=== PATIENT | male | born 1950 | race Caucasian/White ===

== ENCOUNTER → 2019-11-07 | Outpatient (CLI) | payer OTHER ==
[~2019-11-07] MED LIST: ACID CONTROLLER20 MG PO; ALOGLIPTIN25 MG PO; ASA81BEC PO; COL-RITE100 MG PO; COQ-10100 MG PO; FLOMAX0.4 MG PO; MELATONIN3 M1 PO; METFORMIN HCL500 M2 PO; METFORMIN HCL500 M3 PO; MINIPRESS2 MG PO; NEURONTIN100 MG PO; NEURONTIN300 MG PO; NIACIN 500 MG500 M1 PO; NITROSTAT0.4 M1 SUBLING; OMEGA-31000 M2 PO; PLAVIX 75 MG TA75 MG PO; ROBAXIN 750 MG750 MG PO; SYNTHROID125 MC1 PO; TRAMADOL 50 MG50 MG PO; TYLENOL EXTRA500 MG PO; VITAMIN D350 MCG PO; VYTORIN 10-201 EACH PO
== END ==
LOC: LAB 14:28
PROVIDERS: ATTEND Student in an Organized Health Care Education/Training Program
DX: Z01.812 Encounter for preprocedural laboratory examination (principal)

== ENCOUNTER 2019-11-10 06:04 | Inpatient (IN) | payer OTHER ==
[2019-11-07 11:25] LABS: ABSOLUTE NEUTROPHILS 4.8 thou/uL (1.4-8.2); BASOPHILS 0.3 % (0.0-2.0); EOSINOPHILS 3.4 % (0.0-3.0); HEMOGLOBIN 13.6 gm/dL (14.0-18.0); LYMPHOCYTES 24.1 % (24.0-44.0); MCH 30.9 pg (26.0-34.0); MCHC 34.9 g/dL (28.0-37.0); MCV 88.5 fL (80.0-100.0); PLATELET COUNT 100 thou/uL (150-400); POLYS 66.2 % (36.0-66.0); RBC 4.41 mil/uL (4.50-6.00); RDW 12.3 % (10.5-14.5); WBC 7.2 thou/uL (4.0-11.0)
[2019-11-07 11:40] LABS: ALBUMIN 4.3 g/dL (3.4-5.0); APTT 27.1 Seconds (24.5-32.8); CALCIUM 9.3 mg/dL (8.5-10.1); CREATININE 1.1 mg/dL (0.7-1.3); POTASSIUM 4.1 mmol/L (3.5-5.1); PROTIME 10.4 Seconds (9.3-11.4); TOTAL BILIRUBIN 0.3 mg/dL (0.2-1.0); TOTAL PROTEIN 7.3 g/dL (6.4-8.2)
[2019-11-07 11:56] LABS: URINE BILIRUBIN NEGATIVE (Negative); URINE BLOOD NEGATIVE (Negative); URINE CLARITY CLEAR; URINE COLOR YELLOW; URINE GLUCOSE-RANDOM* NEGATIVE (Negative); URINE KETONES NEGATIVE (Negative); URINE LEUKOCYTES-REFLEX NEGATIVE (Negative); URINE NITRITE-REFLEX NEGATIVE (Negative); URINE PROTEIN (DIPSTICK) NEGATIVE (Negative); URINE SPECIFIC GRAVITY >= 1.030 (1.005-1.035); URINE UROBILINOGEN 0.2 E.U./dl (0.2-1.0)
[2019-11-08 01:11] LABS: GLYCOHEMOGLOBIN (HGB A1C) 7.1 % (4.8-5.6)
--- NOTE | 2019-11-08 07:47 | EKG ---
[facility] [place] [address] ELECTROCARDIOGRAM REPORT Name: WHITLEY DUVAL Room #: PRE IN M.R.#: [id number] Admission: Attend Phys: Chad Fischer MD Discharge: Date of : 52 Report #: [id number] THIS REPORT FOR: cc: FAM - Family physician unknown FAM - Family physician unknown George Keita MD [facility] ~ THIS REPORT FOR: //name// [facility] Test Date: 2019-11-07 Test Time: 11:17:17 Pat Name: WHITLEY DUVAL Department: Room: Gender: Wedding Photographer: Ciro EDOUARD : 1950 Requested By: Chad Fischer Order Number: [id number] MD: George Keita Measurements Intervals [place] Rate: 66 P: 50 AL: 198 QRS: -40 QRSD: 127 T: 90 QT: 384 QTc: 403 Interpretive Statements Sinus rhythm Left bundle branch block No previous ECG available for comparison Electronically Signed On 11-08-2019 7:47:10 CDT by George Keita [email or web address] <ELECTRONICALLY SIGNED> By: George Keita MD, [facility] 11/08/19 0747 D: [id number] George Keita MD, FACC /EPI
[~2019-11-10] VITALS: Ht 172.7 cm; Wt 95.3 kg
[2019-11-10] VITALS (15 sets, daily range): BP systolic 102–149; BP diastolic 54–87
--- NOTE | ~2019-11-10 | O ---
[facility] [place] [address] OPERATIVE REPORT Name: WHITLEY DUVAL Room #: 448-P ADM IN M.R.#: [id number] Admission: 11/10/19 Attend Phys: Chad Fischer MD Discharge: Date of : 52 Report #: [id number] THIS REPORT FOR: cc: NICOLE - Family physician unknown NICOLE - Family physician unknown Chad Fischer MD ~ CC: NICOLE unknown Chad [facility] DATE OF SERVICE: 11/10/2019 PREPROCEDURAL DIAGNOSES: L1-L2 spinal stenosis, L2-L3 spinal stenosis, L3-L4 spinal stenosis (recurrent), herniated nucleus pulposus L2-L3, herniated nucleus pulposus L3-L4, free fragment extruded to L1-L2. POSTPROCEDURAL DIAGNOSES: L1-L2 spinal stenosis, L2-L3 spinal stenosis, L3-L4 spinal stenosis (recurrent), herniated nucleus pulposus L2-L3, herniated nucleus pulposus L3-L4, free fragment extruded to L1-L2. PROCEDURE: Bilateral laminectomy with partial facetectomy and neuroforaminotomy of L1, bilateral laminectomy with partial facetectomy and neuroforaminotomy of L2, bilateral laminectomy with partial facetectomy and neuroforaminotomy redo L3, bilateral laminectomy with partial facetectomy and neural foraminotomy redo L4. The patient also had extraction of herniated nucleus pulposus fragments scarred to the floor of the spinal canal just medial to the pedicle of L2 on the left. In addition, he also had removal of a large recurrent herniation at left L3-L4 and he also had serial fluoroscopy. SURGEON: Chad Fischer MD SALES REPRESENTATIVE SURGEON: MARKIE Bai ANESTHESIA: General via endotracheal tube. INDICATIONS: The patient has had back and intractable leg pain. He had it in a radicular distribution L2 nerve root, L3 nerve root and L4 nerve root in the form of a foot drop. He also had neurogenic claudication of the spinal nerve roots. He had proved refractory to all forms of multimodality conservative management and was requesting surgical intervention. His flexion-extension view showed his spine to be stable and on that basis we felt that he did not need a fusion. The patient understood the risks of surgery to be , DVT, pulmonary embolism, paraplegia, loss of bowel and bladder function, loss of sexual function, possibility of bleeding, bleeding requiring transfusion, transfusion attendant risks of AIDS and hepatitis, infection, instability, the need for revision, prolonged hospital stay, dural leak, spinal headache, infection and [address] [address] OPERATIVE REPORT Name: WHITLEY DUVAL Room #: 448-P [facility] IN M.R.#: [id number] Admission: 11/10/19 Attend Phys: Chad Fischer MD Discharge: Date of : 52 Report #: [id number] again he requested we proceed. He also understood the chance of recurrence. DESCRIPTION OF PROCEDURE: The patient was brought to the operating room and administered general anesthesia via endotracheal tube. Lower extremities were treated with SHIRLEY hose and intermittent compression stockings. He was positioned on the Tavo table in the prone position with all bony prominences padded appropriately. Care was taken to ensure the shoulders were not abducted more than 90 degrees, the elbows flexed more than 90 degrees, there was no undue pressure on the cubital or carpal canals. The area of the anterior superior iliac spine was well padded to protect the lateral femoral cutaneous nerve. Hips and knees were well padded and there was no pressure on the dorsum of the feet. The patient's low back was defatted with alcohol and visualized under fluoroscopy and the pedicles of L1, L2, L3, and L4 were marked on the patient's back for surgical reference. Once the levels were known, we sterilely prepped and draped. Infiltrated the skin with 0.5% Marcaine, 1:200,000 epinephrine and sharp dissection was continued down through the skin and the subcutaneous tissues to the level of the deep fascia. Scar was encountered at the L3-L4 level. We carefully dissected to avoid inadvertent penetration of the redo area at L3-L4. We exposed the spinous processes and lamina of L1, L2, L3 and L4. Then, deep self-retaining retractors were placed. The inner laminar spaces were cleared with a heavy ____ curette and Leksell rongeur. Once the exposure was complete and all bleeding had been addressed and stopped, we placed a clamp on the spinous process of what we believed to be L3. Fluoroscopy was brought into the field and fluoroscopy which required fluoroscopic exposure and interpretation by the operative surgeon proved to be at the L3 level. The clamp was removed. The spinous process was scored with a Leksell rongeur. Bleeding was addressed with bone wax. We then removed the spinous processes to allow the laminectomy of L1, L2, L3, and L4. Once they were removed, we were able to thin the lamina of L1, L2, L3 and L4 with a high speed drill to thin to the anterior cortex. We addressed punctate bone bleeding with bone wax on a Kittner. With bone wax pressed into the lamina and the hemostasis now excellent, we used a micro curette under loupe magnification headlight illumination to separate the ligamentum flavum from the undersurface of the lamina, which was then resected with a 3 mm Kerrison. We started at L1 and removed the lamina. I then performed partial facetectomies and ligament resection down to L2. We then used the micro curette to separate the ligament from L2 and performed an L2 laminectomy and marched down the canal including L3 and L4, noting that L3 and L4 had been previously violated and was done in redo fashion. Once complete, we had performed wide central decompression. We then started on the left and marched our way down the lateral recess and performed decompression, partial facetectomy, ligament resection until we were to the level of the pedicle bilaterally. We then turned and performed exactly the same procedure on the right. We then mobilized the L2 nerve root on the left, gently retracted it cephalad and in the axilla and the takeoff of the nerve root just beneath it was a large extruded fragment that was removed. It was almost then like a gelatinous material that was removed both with the pituitary and suction. [facility] [address] [place] [address] OPERATIVE REPORT Name: WHITLEY DUVAL Room #: 448-P [facility] IN M.R.#: [id number] Admission: 11/10/19 Attend Phys: Chad Fischer MD Discharge: Date of : 52 Report #: [id number] [place] dental elevator with downward pressure on the posterior longitudinal ligament would extrude this jelly-like material that was removed with suction and this took care of the central stenosis, lateral recess and neuroforaminal stenosis at the L1 and L2 levels all the way down to L3. At the L3-L4 level, we had to approach it as a redo and leg scar was removed with a micro curette, and then removed with a 2 or 3 mm Kerrison, whichever could be placed. Eventually, we developed the decompression at the L3-L4 level. On the patient's right side, there was a huge extruded disk and this was isolated. The nerve root dissected off the floor of the canal where it was scarred, retracted carefully with a nerve root retractor and the disk material was removed until the canal floor was completely flat and there was no further mass effect from the disk. When complete, we also performed neural foraminotomies of the L4 nerve roots and everything probed completely free. Hemostasis had been excellent. We copiously irrigated with a liter of antibiotic-containing solution. We obtained meticulous hemostasis. We closed the deep fascial layer with 0 Ethibond in [id number] interrupted fashion, deep subQ with 0 Vicryl, superficial subQ with 2-0 Vicryl, skin with subcuticular 3-0 and bubba. We then dressed it with benzoin, Steri-Strips, Xeroform, sterile dressing sponges and a Bioclusive. The patient tolerated the procedure well. Final blood loss was approximately 20 mL. There were no specimens, no complications and the patient was physiologically stable throughout. By: [id number] Chad Fischer MD /nt
--- NOTE | 2019-11-10 15:40 | NUR ---
PATIENT ADMITTED FROM OR WITH LUMBAR LAMINECTOMY, PATIENT HAS LOWER BACK, TELFA, TEGADERM. PATIENT C/O PAIN WITH BACK AREA 5/10. PERCOCET 1 TABLET GIVEN. PATIENT STARTED IV FLUIDS AT 75CC/HR. PATIENT HAS LEFT HAND IV IN PLACE. ALL 1400 MEDS GIVEN. NO C/O NAUSEA AT THIS TIME. PATIENTR STARTED REGULAT DIET. AT BEDSIDE, REPORT GIVEN PONCH/AS400 ADMINISTRATOR.
--- NOTE | 2019-11-11 03:47 | NUR ---
RECEIVED CARE OF THIS PATIENT AT 1900. PATIENT C/O PAIN, IV AND PO MED GIVEN. IVIN L HAND PATENT WITH FLUIDS INFUSING. PATIENT SAT ON EDGE OF BED THEN WALKED A FEW STEPS AND SAT DOWN ON BED. GOT UP A SECOND TIME AND SAT IN A CHAIR FOR 15MIN. STATED WAS PAINFUL TO GET UP BUT TO SIT UP OR WALK. PATIENT HAS BOTH SCD'S AND TEDS ON. DRESSING ON BACK IS INTACT WITH SOME BLOOD POOLING IN THE BOTTOM OF THE DRESSING. SLEPT OFF AND ON DURING NIGHT.
[2019-11-11 04:37] VITALS: BP 103/60
[2019-11-11 06:12] LABS: ABSOLUTE NEUTROPHILS 9.8 thou/uL (1.4-8.2); BASOPHILS 0.5 % (0.0-2.0); EOSINOPHILS 0.2 % (0.0-3.0); HEMATOCRIT 36.5 % (42.0-52.0); HEMOGLOBIN 12.8 gm/dL (14.0-18.0); LYMPHOCYTES 15.2 % (24.0-44.0); MCH 31.2 pg (26.0-34.0); MCHC 35.1 g/dL (28.0-37.0); MONOCYTES 7.6 % (1.0-8.0); PLATELET COUNT 115 thou/uL (150-400); POLYS 76.5 % (36.0-66.0); RDW 12.6 % (10.5-14.5); WBC 12.8 thou/uL (4.0-11.0)
[2019-11-11 06:28] LABS: CALCIUM 8.8 mg/dL (8.5-10.1); MAGNESIUM 1.7 mg/dL (1.8-2.4); POTASSIUM 4.4 mmol/L (3.5-5.1)
[2019-11-11 09:19] VITALS: BP 127/66
--- NOTE | 2019-11-11 10:37 | NUR ---
Assumed care of pt at 0700. Pt a&ox4. Prn pain meds given per pt request. Pt worked with physical therapy and occupational therapy this am. Dressing clean and intact. IVF infusing. SHIRLEY hosjan and SCDs in place. Diet advanced. Pt will discharge tomorrow with home health. Call light within reach. Will continue to monitor.
[2019-11-11] MEDS ORDERED: MIRALAX119 GM PO (13:12)
[2019-11-11 13:51] VITALS: BP 127/66
--- NOTE | 2019-11-11 14:20 | NUR ---
ASSESSMENT: CM REVIEWED CHART AND SPOKE WITH PATIENT. PT IS ALERT AND ORIENTED X4. PT WAS HERE DUE TO LAMINECTOMY. PT REPORTS LIVING IN A HOUSE WITH HIS . PT REPORTS ABOUT TWO STEPS HE HAS NO USE AND HAS NO STEPS ONCE INSIDE. PT REPORTS HE HAS A CANE, WALKER, AND WHEELCHAIR AT HOME FOR AMBULATION. PT REPORTS HE HAS A GRAB BAR. CM RECEIVED A CALL FROM [facility] STATING THEY RECEIVED A REFERRAL FROM PTS ATTENDING BUT THEY ARE UNABLE TO SEE PATIENT IN A TIMELY MANNER DUE TO STAFFING. THEY REPORT THAT [facility] ALSO GOES TO THE COUNTY PATIENT LIV[place]. CM SPOKE WITH PATIENT AND NOTIFIED HIM AND HE WAS OK WITH REFERRAL TO [facility]. CM RECEIVED A CALL BACK FROM [facility] AND THEY ARE ABLE TO ACCEPT PT AT DISCHARGE. PT IS STILL HAVING SOME PAIN AND PLAN IS FOR THE PATIENT TO DISCHARGE HOME TOMORROW. CM NOTIFIED [facility] HH AND ALREADY FAXED THEM HH DISCHARGE ORDERS AND THEY HAVE THE PATIENT ON THE SCHEDULE FOR THURSDAY.
[2019-11-11 16:06] VITALS: BP 117/45
[2019-11-11 19:55] VITALS: BP 132/75
--- NOTE | 2019-11-11 23:16 | NUR ---
ASSUMED PT CARE AT APPROX 1900.PT ALERT,CALM AND COPERATIVE WITH CARE.PT UP WITH WALKER TO TOILET,C/O PAIN WHEN HE GOT BACK TO HIS BED,MED GIVEN WITH PARTIAL RELIEF.PT'S DRSG ON HIS BACK WAS OBSERVED TO HAVE BLOODY DRAINAGE POOLING AT THE BOTTOM OF THE DRSG AFTER PT AMBULATED TO THE TOILET,DRSG WAS REINFORCED.PT REFUSED HIS CLINDAMYCIN AND MIRALAX AT HS.PT MADE A COUPLE MORE TRIPS TO THE BR WITH THE HOPE OF HAVING A BM, NO RESULT YET.IVF INFUSING ORDERED.PT RESTING ON HIS BED AT THIS TIME.FALL PRECAUTIONS IN PLACE,CALL LIGHT WITHIN REACH.
[2019-11-12 06:01] LABS: ABSOLUTE NEUTROPHILS 7.7 thou/uL (1.4-8.2); BASOPHILS 0.3 % (0.0-2.0); EOSINOPHILS 0.2 % (0.0-3.0); HEMATOCRIT 34.1 % (42.0-52.0); HEMOGLOBIN 12.1 gm/dL (14.0-18.0); LYMPHOCYTES 16.8 % (24.0-44.0); MCH 31.4 pg (26.0-34.0); MCHC 35.3 g/dL (28.0-37.0); MONOCYTES 9.3 % (1.0-8.0); PLATELET COUNT 95 thou/uL (150-400); POLYS 73.4 % (36.0-66.0); RBC 3.84 mil/uL (4.50-6.00); RDW 12.8 % (10.5-14.5); WBC 10.5 thou/uL (4.0-11.0)
[2019-11-12 06:27] LABS: CALCIUM 8.4 mg/dL (8.5-10.1); CREATININE 1.1 mg/dL (0.7-1.3); POTASSIUM 3.9 mmol/L (3.5-5.1)
[2019-11-12 08:00] VITALS: BP 100/62
[2019-11-12 11:00] VITALS: BP 127/66
--- NOTE | 2019-11-12 11:46 | NUR ---
Assumed care of pt at 0700. Pt a&ox4. Some old drainage on dressing. Up SBA with walker and gait-belt. Pain controlled with prn pain meds. Medicine scripts given to patient. Talked to pt's and updated on pt's discharge. Discharging to home with home health.
== END 2019-11-12 12:01 | disposition home health service (06) | DRG 518 ==
LOC: 4S 06:04 → TBA 06:04 → OR 09:18 → EDSTATUS 10:14 → TBA 10:19 → 4S 12:39
PROVIDERS: Nurse Practitioner; Physician Assistant
PROC: 01NB0ZZ Release Lumbar Nerve, Open Approach (ICD-10-PCS; principal; 2019-11-10)
PROC: 00NY0ZZ Release Lumbar Spinal Cord, Open Approach (ICD-10-PCS; 2019-11-10)
DX: M48.061 Spinal stenosis, lumbar region without neurogenic claudication (principal); J96.01 Acute respiratory failure with hypoxia; G89.29 Other chronic pain; F11.90 Opioid use, unspecified, uncomplicated; F32.9 Major depressive disorder, single episode, unspecified; F41.9 Anxiety disorder, unspecified; K59.09 Other constipation; E11.42 Type 2 diabetes mellitus with diabetic polyneuropathy; E78.5 Hyperlipidemia, unspecified; F43.10 Post-traumatic stress disorder, unspecified; K21.9 Gastro-esophageal reflux disease without esophagitis; E78.00 Pure hypercholesterolemia, unspecified; M51.26 Other intervertebral disc displacement, lumbar region; Z85.828 Personal history of other malignant neoplasm of skin; Z90.49 Acquired absence of other specified parts of digestive tract; Z88.1 Allergy status to other antibiotic agents; Z88.8 Allergy status to other drugs, medicaments and biological substances; Z95.1 Presence of aortocoronary bypass graft; Z95.2 Presence of prosthetic heart valve
CPT/HCPCS: 10102; 50010; 50101; 50402; 50850; 51412; 51878; 56524; 56528; 62110; 62900